=== PATIENT | female | born 1960 | race Caucasian/White ===

== ENCOUNTER 2016-09-03 17:40 | Emergency (ER) | payer BC ==
[~2016-09-03] VITALS: Ht 157.5 cm; Wt 72.0 kg
[2016-09-03 17:54] VITALS: BP 105/54; PULSE 81; RESP 17; TEMP 98.1; O2SAT 100
--- NOTE | 2016-09-03 18:57 | PD ---
HPI Chief Complaint: Musculoskeletal Complaint Time Seen by Provider: 18:54 Travel History International Travel<30 days: No Contact w/Intl Traveler<30days: No Traveled to known affect area: No History of Present Illness HPI Patient is a 55-year-old female presenting to emergency for evaluation of right mid back pain. Patient states it started yesterday evening she was sitting at her computer. She denies any injury or trauma, she denies any new activities that could've injured her back. She states at 3 AM this morning the pain intensified and it hurts to take a deep breath. Patient denies feeling short of breath, tachypneic, she denies any palpitations. Patient denies any recent surgeries, illnesses, she is not on any hormone replacement therapy. She denies any history of DVT or PE. She reports a history of diabetes and thyroid disorder. [facility] Past Medical History Diabetes: Yes Thyroid Disease: Yes Family History Family History: Negative Social History Alcohol Use: No Tobacco Use: No Substance Use: No Allergies-Medications (Allergen,Severity, Reaction): Coded Allergies: Metformin (Verified Allergy, Severe, ITCHY, NAUSEA, 09/03/16) Review of Systems Except as stated in HPI: all other systems reviewed are Neg General / Constitutional: No: Fever, Chills HENT: No: Headaches Cardiovascular: No: Chest Pain or Discomfort Respiratory: Positive: Pleuritic Pain, No: Cough, Shortness of Breath Gastrointestinal: No: Nausea, Abdominal Pain Musculoskeletal: Positive: Pain Physical Exam Narrative GENERAL: Well-developed, well-nourished, alert female. Resting comfortably in no acute distress. SKIN: Focused skin assessment warm/dry. HEAD: Atraumatic. Normocephalic. EYES: Pupils equal and round. No scleral icterus. No injection or drainage. ENT: No nasal bleeding or discharge. Mucous membranes pink and moist. NECK: Trachea midline. No JVD. CARDIOVASCULAR: Regular rate and rhythm. No murmur appreciated. RESPIRATORY: No accessory muscle use. Clear to auscultation. Breath sounds equal bilaterally. GASTROINTESTINAL: Abdomen soft, non-tender, nondistended. Hepatic and splenic margins not palpable. MUSCULOSKELETAL: No obvious deformities. No clubbing. No cyanosis. No edema. NEUROLOGICAL: Awake and alert. No obvious cranial nerve deficits. Motor grossly within normal limits. Normal speech. PSYCHIATRIC: Appropriate mood and affect; insight and judgment normal. Data Data Last Documented VS Vital Signs Date Time Temp Pulse Resp B/P Pulse Ox O2 Delivery O2 Flow Rate FiO2 09/03/16 17:54 98.1 81 17 105/54 100 Orders Chest, Pa & Lat (09/03/16 ) [facility] Medical Decision Making Medical Screen Exam Complete: Yes Emergency Medical Condition: Yes Interpretation(s) Vital Signs Date Time Temp Pulse Resp B/P Pulse Ox O2 Delivery O2 Flow Rate FiO2 09/03/16 17:54 98.1 81 17 105/54 100 Differential Diagnosis Muscle strain versus pinched nerve versus PE versus pleurisy versus other Narrative Course Patient is a 55 year old female presenting to emergency for evaluation of right mid back pain. Her vital signs are stable, she is well oxygenated on room air. Lung sounds are clear to auscultation. Chest x-ray ordered and pending. Discussed with my attending physician, she states that she will discuss with Dr. Yu who is coming on shift now regarding possible PE workup. Discussed with my attending physician. Suspicion for PE is low due to normal vital signs, patient is low risk, she has not been sedentary or bedbound, no recent surgeries or cancer diagnosis. Patient will be treated with anti- inflammatory medication and muscle relaxer. She is encouraged to follow-up with her primary doctor. She is further encouraged to return to emergency department for any new or worsening symptoms. Patient verbalized understanding of instructions. Patient is stable for discharge. Diagnosis Primary Impression: Back pain Qualified Code: M54.6 - Right-sided thoracic back pain, unspecified chronicity Referrals: Primary Care Physician Patient Instructions: Back Pain (ED), General Instructions Additional Instructions: Take medications as directed Follow-up with her primary doctor Return to emergency department immediately for any new or worsening symptoms Med/Other Pt SpecificInfo: Prescription(s) given Scripts Cyclobenzaprine (Flexeril)10 Mg Tab10 Mg PO TID PRN (MUSCLE SPASM) 7 Days Ref 0 Prov:Betsy Victor 09/03/16 Ibuprofen 800 Mg [id number] Mg PO Q8H PRN (Pain/Inflammation) 10 Days Ref 0 Prov:Betsy Victor 09/03/16 Disposition: 01 DISCHARGE HOME Condition: Stable Betsy Victor Sep 03, 2016 18:57
--- NOTE | 2016-09-03 19:32 | RADHPO ---
EXAM DATE/TIME: 09/03/2016 18:56 [place] COMPARISON: No previous studies available for comparison. INDICATIONS : Short of breath. MEDICAL HISTORY : None. SURGICAL HISTORY : None. ENCOUNTER: Initial ACUITY: 1 day PAIN SCORE: 5/10 LOCATION: Bilateral chest FINDINGS: PA and lateral views of the chest demonstrate the lungs to be symmetrically aerated without evidence of mass, infiltrate or effusion. The cardiomediastinal contours are unremarkable. Osseous structure s are intact. CONCLUSION: Normal examination. Sea Quigley MD on September 03, 2016 at 19:29 Board Certified Radiologist. This report was verified electronically.
[2016-09-03] MEDS ORDERED: IBUP800T23 PO (19:52)
[2016-09-03] MEDS ORDERED: CYCL1TAB29 PO (19:52)
== END 2016-09-03 20:23 | disposition home or self-care (01) ==
LOC: PHED 17:40 → PHEFT 20:23
DX: M54.6 Pain in thoracic spine (principal); E11.9 Type 2 diabetes mellitus without complications; E07.9 Disorder of thyroid, unspecified; R07.81 Pleurodynia
CPT/HCPCS: 71020; 99283